=== PATIENT | male | born 1945 | race Caucasian/White ===

== ENCOUNTER 2019-02-26 11:48 | Observation (INO) | payer MEDICARE, OTHER ==
[2019-02-26 12:07] LABS: ABSOLUTE EOSINOPHILS # (AUTO) 0.1 10^3/uL (0.0-0.6); ABSOLUTE LYMPHOCYTES (AUTO) 1.1 10^3/uL (0.5-4.7); ABSOLUTE MONOCYTES (AUTO) 0.5 10^3/uL (0.1-1.4); ABSOLUTE NEUT (AUTO) 4.8 10^3/uL (1.7-8.2); BASOPHILS % (AUTO) 0.4 % (0-2); HEMATOCRIT 43.9 % (37.9-51.0); HEMOGLOBIN 15.1 g/dL (13.5-17.0); LYMPHOCYTES % (AUTO) 17.1 % (13-45); MEAN CORPUSCULAR HEMOGLOBIN 29.4 pg (27.0-33.4); MEAN CORPUSCULAR HGB CONC 34.4 g/dL (32.0-36.0); MEAN CORPUSCULAR VOLUME 85 fl (80-97); PLATELET COUNT 203 10^3/uL (150-450); RED BLOOD COUNT 5.14 10^6/uL (4.35-5.55); RED CELL DISTRIBUTION WIDTH 14.5 % (11.5-14.0); SEGMENTED NEUTROPHILS % (AUTO) 72.5 % (42-78); TOTAL CELLS COUNTED % (AUTO) 100 %; WHITE BLOOD COUNT 6.6 10^3/uL (4.0-10.5)
--- NOTE | 2019-02-26 12:07 | RADIOLOGY REPORT (SQ) ---
EXAM DESCRIPTION: CT HEAD WITHOUT COMPLETED DATE/TIME: 02/26/2019 11:55 am REASON FOR STUDY: bed 15 stroke alert COMPARISON: None. TECHNIQUE: Axial images acquired through the brain without intravenous contrast. Images reviewed wi th bone, brain and subdural windows. Additional sagittal and coronal reconstructions were generated. Images stored on PACS. All CT scanners at this facility use dose modulation, iterative reconstruction, and/or weight based d osing when appropriate to reduce radiation dose to as low as reasonably achievable (ALARA). [facility]: Dose Right [facility]: CareDose [facility]: Dose Right [facility]: Teradose 4D [facility]: [place] RADIATION DOSE: mGy. LIMITATIONS: None. FINDINGS: VENTRICLES: Normal size and contour. CEREBRUM: No masses. No hemorrhage. No midline shift. No evidence for acute infarction. Normal gra y/white matter differentiation. No areas of low density in the white matter. CEREBELLUM: No masses. No hemorrhage. No alteration of density. No evidence for acute infarction. EXTRAAXIAL SPACES: No fluid collections. No masses. ORBITS AND GLOBE: No intra- or extraconal masses. Normal contour of globe without masses. CALVARIUM: No fracture. PARANASAL SINUSES: No fluid or mucosal thickening. SOFT TISSUES: No mass or hematoma. OTHER: No other significant finding. IMPRESSION: NORMAL BRAIN CT WITHOUT CONTRAST. EVIDENCE OF ACUTE STROKE: NO. COMMENT: Pertinent positive or negative findings of the imaging study reported as a CRITICAL EXAM t o ER PROVIDER at11:59 on 02/26/2019. Category of Critical Exam: Stroke alert Quality ID # [id number]: Final reports with documentation of one or more dose reduction techniques (e.g., Au tomated exposure control, adjustment of the mA and/or kV according to patient size, use of iterative reconstruction technique) TECHNICAL DOCUMENTATION: JOB ID: [id number] [employer]- All Rights Reserved Reading location - IP/workstation name: [email or web address]
[2019-02-26 12:10] LABS: INTERNATIONAL RATION (INR) 1.02; PROTHROMBIN TIME 13.9 SEC (11.4-15.4)
[2019-02-26 12:11] LABS: PARTIAL THROMBOPLASTIN TIME 31.4 SEC (23.5-35.8)
[2019-02-26 12:24] LABS: ALANINE AMINOTRANSFERASE 36 U/L (21-72); ALBUMIN 4.2 g/dL (3.5-5.0); ALKALINE PHOSPHATASE 92 U/L (38-126); ANION GAP 8 (5-19); ASPARTATE AMINO TRANSFERASE 30 U/L (17-59); BILIRUBIN,DIRECT 0.2 mg/dL (0.0-0.4); BILIRUBIN,TOTAL 0.5 mg/dL (0.2-1.3); BLOOD UREA NITROGEN 18 mg/dL (7-20); CALCIUM 9.9 mg/dL (8.4-10.2); CARBON DIOXIDE 26 mmol/L (22-30); CHLORIDE 105 mmol/L (98-107); CREATINE KINASE 110 U/L (55-170); GLUCOSE 100 mg/dL (75-110); POTASSIUM 4.1 mmol/L (3.6-5.0); SODIUM 139.3 mmol/L (137-145)
[2019-02-26] MEDS ORDERED: NORMAL SALINE 1000 ML 1,000 ML IV ONE (12:24)
[2019-02-26 12:35] LABS: CREATINE KINASE MB 1.49 ng/mL (<4.55)
--- NOTE | 2019-02-26 12:35 | RADIOLOGY REPORT (SQ) ---
EXAM DESCRIPTION: CHEST SINGLE VIEW COMPLETED DATE/TIME: 02/26/2019 12:23 pm REASON FOR STUDY: bed 15 stroke alert COMPARISON: None. EXAM PARAMETERS: NUMBER OF VIEWS: One view. TECHNIQUE: Single frontal radiographic view of the chest acquired. RADIATION DOSE: NA LIMITATIONS: None. FINDINGS: LUNGS AND PLEURA: Basilar atelectasis. No pneumothorax. No effusions. MEDIASTINUM AND HILAR STRUCTURES: No masses. Contour normal. HEART AND VASCULAR STRUCTURES: Heart enlarged. BONES: No acute findings. HARDWARE: None in the chest. OTHER: No other significant finding. IMPRESSION: Cardiac enlargement. Basilar atelectasis. TECHNICAL DOCUMENTATION: JOB ID: [id number] [employer]- All Rights Reserved Reading location - IP/workstation name: [email or web address]
[2019-02-26 12:36] LABS: TROPONIN I < 0.012 ng/mL
--- NOTE | 2019-02-26 13:06 | ER Document Report ---
ED Neuro Symptoms/Deficit - General Chief Complaint: Facial Droop Stated Complaint: POSSIBLE STROKE Time Seen by Provider: 02/26/19 11:57 Notes: Patient was driving his car today, about 1/2-hour ago, when he suddenly could not speak properly. He and his were together in the car and had been traveling since early this morning from near [place], headed to [place], [place]. They did eat breakfast sandwiches and coffee this morning. According to the , patient's speech became garbled and slurred and like "gibberish".. He seemed to be confused and unable to answer questions.. He was able to bring the car to a stop and EMS was called for the patient. They describe him having coordination problems, not able to touch his index finger to his nose and to the examiner's finger. EMS says that he overshot his nose and touch the back of his head. He seemed very forgetful, he was able to provide his name but did not know where he is. He could not squeeze the EMS examiner hands when requested. Denies having any headache. No loss of consciousness. Was able to stand for EMS. Has not been sick recently. Never had a stroke. No history of any heart disease. History of hypertension, sleep apnea, and restless leg syndrome. Patient has hearing aids but he does not wear them very often and is not wearing them currently although he seems to be able to hear what we are saying to him. TRAVEL OUTSIDE OF THE [place] IN LAST 30 DAYS: No - Related Data Allergies/Adverse Reactions: No Known Allergies Allergy (Unverified 02/26/19 12:48) Past Medical History - Social History Smoking Status: Former Smoker - Many years ago Frequency of alcohol use: Occasional Drug Abuse: None Family History: Reviewed & Not Pertinent Patient has suicidal ideation: No Patient has homicidal ideation: No - Past Medical History Cardiac Medical History: Reports: Hx Hypertension Pulmonary Medical History: Reports: Hx COPD, Hx Sleep Apnea - On CPAP Musculoskeletal Medical History: Reports Hx Restless Leg Syndrome Past Surgical History: Reports: Hx Orthopedic Surgery - bilat hip replacement, Other - Prostate surgery Review of Systems - Review of Systems Notes: REVIEW OF SYSTEMS: CONSTITUTIONAL : Denies fever. EENT: Patient is hard of hearing and wears hearing aids sometimes, but not regularly. Otherwise denies eye, ear, nose or mouth or throat pain or other symptoms. CARDIOVASCULAR: Denies chest pain. RESPIRATORY: Denies cough, chest congestion, or shortness of breath. GASTROINTESTINAL: Denies abdominal pain or nausea, vomiting, or diarrhea. GENITOURINARY: Denies difficulty or painful urinating, urinary frequency, blood in urine. MUSCULOSKELETAL: Denies back or neck pain. Denies joint pain or swelling. SKIN: Denies rash or skin lesions. NEUROLOGICAL: See HPI. Denies LOC or altered mental status. Denies headache. Denies sensory loss or motor deficits. ALL OTHER SYSTEMS REVIEWED AND NEGATIVE. Physical Exam - Vital signs Vitals: Resp 13 02/26/19 11:56 Interpretation: Normal Notes: PHYSICAL EXAMINATION: GENERAL: Well-appearing, in no acute distress. Patient has difficulty answering any questions. Seems to have to think about every answer and then has difficulty speaking the words. Seems as if he cannot find the proper words to use. He does know his name, but not his location. He knows the month is February and that he is 73, although it takes him some significant length of time to provide answers. Speech is garbled. HEAD: Atraumatic, normocephalic. EYES: Pupils equal round and reactive to light, extraocular movements intact. ENT: oropharynx clear without exudates. Moist mucous membranes. NECK: Normal range of motion, supple. No carotid bruits heard. LUNGS: Breath sounds clear and equal bilaterally. HEART: Regular rate and rhythm without murmurs. ABDOMEN: Soft, nontender. No guarding or rebound. No masses. BACK: No tenderness throughout entire back. EXTREMITIES: Normal range of motion without pain. NEUROLOGICAL: Gait not tested. EMS reports patient was able to stand and walk. Speech initially garbled and very slow and deliberate and almost seemingly confused. Delays rather lengthy period of time. EMS reports the patient had a left facial droop after they picked him up and started here while in the vehicle. However, they do not see it at this time nor do we see any facial asymmetry. PSYCH: Normal mood, normal affect. SKIN: Warm, dry, no rashes. Course - Re-evaluation Re-evalutation: 02/26/19 13:12 As I was doing my second evaluation of the patient after he had been to CT scan, patient's speech began to improve. Gradually recovered normal speech and his thought processes seem to clear completely and the family agrees that he is much better now than he was initially. Because of the patient's recovery of almost all apparently normal neurologic function and speech and language, and with a normal CT scan, I do not think the patient is a candidate for thrombolytic therapy. His symptoms are more consistent with a TIA. Have discussed this with the family and told him that I think the risk of giving thrombolytics in this situation are worse than the potential limited gain, since the patient is clearly almost back to normal. 02/26/19 15:45 Patient's MRI of the brain does not show any evidence of stroke. Basically normal study. Aspirin will be initiated. - Vital Signs Vital signs: Temp Pulse Resp BP Pulse Ox 98.0 F 66 20 134/76 H 94 02/26/19 15:30 02/26/19 14:30 02/26/19 16:02 02/26/19 16:02 02/26/19 16:02 - Laboratory Result Diagrams: 02/26/19 11:50 02/26/19 11:50 Laboratory results interpreted by me: 02/26/19 11:50 RDW 14.5 H - Diagnostic Test Radiology reviewed: Image reviewed, Reports reviewed - CT scan of the brain is normal. MRI of the brain is also normal. No evidence of stroke. Radiology results interpreted by me: 02/26/19 13:16 Chest x-ray shows cardiomegaly but otherwise normal. - EKG Interpretation by Sc EKG shows normal: Sinus rhythm Rate: Normal Rhythm: NSR - At 66/min Critical Care Note - Critical Care Note Total time excluding time spent on procedures (mins): 30 Discharge - Discharge Clinical Impression: TIA (transient ischemic attack) Disposition: ADMITTED OBSERVATION Admitting Provider: Onime (Hospitalist) Unit Admitted: Telemetry
--- NOTE | 2019-02-26 15:36 | RADIOLOGY REPORT (SQ) ---
EXAM DESCRIPTION: MRI HEAD WITHOUT COMPLETED DATE/TIME: 02/26/2019 3:23 pm REASON FOR STUDY: TIA, garbled speech, confusion, no peripheral neur COMPARISON: CT same day TECHNIQUE: Multiplanar imaging includes non-contrasted T1, T2, FLAIR, and Diffusion with ADC map seq uences. Images stored on PACS. LIMITATIONS: None. FINDINGS: ANATOMY: No anomalies. Normal vascular flow voids. Pituitary fossa normal. CSF SPACES: Normal in size and contour. No hemorrhage. CEREBRUM: A few high-signal intensity lesions scattered throughout the white matter on FLAIR imaging with distribution suggesting chronic micro-vascular ischemic change. Sulci and gyri normal in size a nd contour. No evidence of hemorrhage, mass or extraaxial fluid collection. POSTERIOR FOSSA: No signal alteration. No hemorrhage. No edema, masses or mass effect. Internal ross tory canals, cerebello-pontine angles, mastoids normal. DIFFUSION: Negative for acute or sub-acute infarction. ORBITS: No masses. Globes normal. PARANASAL SINUSES: No fluid levels. Mucosa normal. OTHER: No other significant finding. IMPRESSION: MINIMAL MICROVASCULAR ISCHEMIC CHANGE. OTHERWISE NORMAL STUDY. EVIDENCE OF ACUTE STROKE: NO. TECHNICAL DOCUMENTATION: JOB ID: [id number] [employer]- All Rights Reserved Reading location - IP/workstation name: [email or web address]
[2019-02-26] MEDS ORDERED: ASPIRIN 325 MG TABLET PO ONE (15:55)
--- NOTE | 2019-02-26 17:15 | RADIOLOGY REPORT (SQ) ---
EXAM DESCRIPTION: CAROTID DOPPLER COMPLETED DATE/TIME: 02/26/2019 4:49 pm REASON FOR STUDY: TIA COMPARISON: MRI brain 02/26/2019. CT brain 02/26/2019. TECHNIQUE: Grayscale ultrasound, Doppler velocity and spectra, and color Doppler images acquired of the extra-cranial carotid and vertebral arteries. Images stored on PACS. LIMITATIONS: None. FINDINGS: RIGHT CAROTID CCA Velocities: Within normal limits, peak systolic velocity 0.86 m/sec. ICA Velocities Peak systolic 0.56 m/s. End diastolic 0.20 m/s. Proximal ICA/CCA peak systolic ratio normal. Spectra normal. No significant plaque. LEFT CAROTID CCA Velocities: Within normal limits, peak systolic velocity 1 m/sec. ICA Velocities Peak systolic 0.58 m/s. End diastolic 0.23 m/s. Proximal ICA/CCA peak systolic ratio normal. Spectra normal. No significant plaque. VERTEBRAL ARTERIES: Antegrade flow. Normal waveforms. SUBCLAVIAN ARTERIES: Not evaluated OTHER: No other significant finding. IMPRESSION: NO HEMODYNAMICALLY SIGNIFICANT STENOSIS. COMMENT: Quality ID #[id number]: Velocity criteria are extrapolated from the diameter data as defined by t he Society of Radiologists in Ultrasound Consensus Conference. Radiology 2003: 229; 340-346. TECHNICAL DOCUMENTATION: JOB ID: [id number] [employer]- All Rights Reserved Reading location - IP/workstation name: [email or web address]
--- NOTE | 2019-02-26 18:55 | PDOC H&P ---
History of Present Illness Patient complains of: Expressive aphasia History of Present Illness: MIGUEL ÁNGEL CH I is a 73 year old male history of hypertension, hyperlipidemia, prostate cancer, who presented to the ED with complaint of confusion while he was riding in the car to visit family for [place]. Stated he became disoriented briefly. Also he could not get his words out. No loss of consciousness. No chest pain no shortness of breath or palpitations. Denies history of similar episode in the past or history of CVA. However, reports brother with a history of CVA. By the time he arrived in the ED, symptoms had improved. Initial head CT was negative for acute process. Patient was treated with aspirin and referred for admission. Past Medical History Cardiac Medical History: Reports: Hypertension Pulmonary Medical History: Reports: Chronic Obstructive Pulmonary Disease (COPD), Sleep Apnea - On CPAP Past Surgical History Past Surgical History: Reports: Orthopedic Surgery - bilat replacement Social History Smoking Status: Former Smoker - Many years ago - Advance Directive Resuscitation Status: Full Code Family History Family History: CVA Parental Family History Reviewed: Yes Children Family History Reviewed: Yes Sibling(s) Family History Reviewed.: Yes Medication/Allergy Home Medications: Lisinopril [Prinivil 10 mg Tablet] 10 mg PO DAILY 02/26/19 Pramipexole Di-HCl [Mirapex] 1 mg PO BID 02/26/19 Pravastatin Sodium [Pravachol] 40 mg PO DAILY 02/26/19 Allergies/Adverse Reactions: No Known Allergies Allergy (Unverified 02/26/19 12:48) Review of Systems Review of Systems: CONSTITUTIONAL : Fever, chills -- No; unexpalined fatigue -- No EENT: Denies eye, ear, throat, or mouth pain or symptoms. Denies nasal or sinus congestion or discharge. Denies throat, tongue, or mouth swelling or difficulty swallowing. CARDIOVASCULAR: Denies chest pain. No racing heart RESPIRATORY: Denies cough, no shortness of breath, difficulty breathing. GASTROINTESTINAL: Denies abdominal pain or distention. Denies nausea, vomiting, or diarrhea. No rectal bleeding. GENITOURINARY: Urinary symptoms -- no. MUSCULOSKELETAL: No acute weakness SKIN: Denies rash, lesions or sores. HEMATOLOGIC : Denies easy bruising or bleeding. LYMPHATIC: Denies swollen, enlarged glands. NEUROLOGICAL: New weakness, headaches, slured speach - No PSYCHIATRIC: Changes anxiety or stress, depression, suicidal ideation, or homicidal ideation -- No ALL OTHER SYSTEMS REVIEWED AND NEGATIVE. Physical Exam Vital Signs: Temp Pulse Resp BP Pulse Ox 97.9 F 66 20 153/88 H 93 02/26/19 12:32 02/26/19 12:01 02/26/19 12:32 02/26/19 12:32 02/26/19 12:32 Intake & Output 02/25/19 02/26/19 02/27/19 06:59 06:59 06:59 Intake Total 1000 Balance 1000 Weight 95.6 kg GENERAL: Well-developed, well-nourished male, in no acute distress HEENT: Normocephalic/atraumatic, oral mucosa clear NECK supple, no JVD, no carotid bruit CARDIOVASCULAR: RRR, normal S1-S2, no appreciable murmur LUNGS: CTA bilaterally ABDOMEN: Soft, NT, NL bowel sounds EXTREMITIES: No edema, clubbing, cyanosis NEUROLOGICAL: Alert, oriented x 3, CN II through XII grossly intact, motor/strength 5/5 throughout, reflexes 2+ symmetrical Results Laboratory Results: 02/26/19 11:50 02/26/19 11:50 02/26/19 02/26/19 11:50 11:50 WBC 6.6 RBC 5.14 Hgb 15.1 Hct 43.9 MCV 85 MCH 29.4 MCHC 34.4 RDW 14.5 H Plt Count 203 Seg Neutrophils % 72.5 Lymphocytes % 17.1 Monocytes % 8.0 Eosinophils % 2.0 Basophils % 0.4 Absolute Neutrophils 4.8 Absolute Lymphocytes 1.1 Absolute Monocytes 0.5 Absolute Eosinophils 0.1 Absolute Basophils 0.0 Sodium 139.3 Potassium 4.1 Chloride 105 Carbon Dioxide 26 Anion Gap 8 BUN 18 Creatinine 0.76 Est GFR ( Amer) > 60 Est GFR (Non-Af Amer) > 60 Glucose 100 Calcium 9.9 Total Bilirubin 0.5 AST 30 ALT 36 Alkaline Phosphatase 92 Total Protein 7.0 Albumin 4.2 02/26/19 02/26/19 11:50 11:50 Creatine Kinase 110 CK-MB (CK-2) 1.49 Troponin I < 0.012 Impressions: Chest X-Ray 02/26/19 11:49 IMPRESSION: Cardiac enlargement. Basilar atelectasis. Head CT 02/26/19 11:49 IMPRESSION: NORMAL BRAIN CT WITHOUT CONTRAST. EVIDENCE OF ACUTE STROKE: NO. Assessment and Plan - Diagnosis (1) TIA (transient ischemic attack) Is this a current diagnosis for this admission?: Yes (2) Hypertension Is this a current diagnosis for this admission?: Yes (3) Hyperlipidemia Is this a current diagnosis for this admission?: Yes (4) History of prostate cancer Is this a current diagnosis for this admission?: Yes (5) Restless leg syndrome Is this a current diagnosis for this admission?: Yes - Plan Summary Plan Summary: Suspect patient has TIA. Will admit to telemetry 24 hrs observation. Will obtain MRI of the head to r/o CVA. Will check echocardiogram and carotid Dopplers to complete workup. Encouraging is that his symptoms have largely resolved. We will treat with aspirin. Continue patient's chronic outpatient medications otherwise. He is on pravastatin 40 mg daily. Will change to high-dose statin with atorvastatin 40 mg daily.
[2019-02-26] MEDS ORDERED: PRAMIPEXOLE DI-HCL 0.5 MG TABLET PO ONE (19:30)
--- NOTE | 2019-02-26 20:54 | EKG REPORT ---
SEVERITY:- ABNORMAL ECG - SINUS RHYTHM PROBABLE INFERIOR INFARCT, AGE INDETERMINATE : Confirmed by: Josephine Slade MD 26-Feb-2019 20:53:45
[2019-02-26] MEDS ORDERED: PRAMIPEXOLE DI-HCL 0.5 MG TABLET ONE (20:55)
[2019-02-26] MEDS ORDERED: ATORVASTATIN CALCIUM 40 MG TABLET PO SCH (22:00)
[2019-02-27] MEDS ORDERED: PRAMIPEXOLE DI-HCL 0.5 MG TABLET PO SCH (10:00)
[2019-02-27] MEDS ORDERED: LISINOPRIL 10 MG TABLET PO SCH (10:00)
[2019-02-27] MEDS ORDERED: ENOXAPARIN SODIUM INJ 40 MG/0.4 ML DISP.SYRIN SUBCUT SCH (10:00)
--- NOTE | 2019-02-27 14:28 | XCELERA REPORT ---
[address] [address] Transthoracic Echocardiogram Report Name: MIGUEL ÁNGEL CH I Age: 73 yrs Gender: Male : 1945 Patient Status: Inpatient Patient Location: [place] [address]^A Study Date: 02/26/2019 04:08 PM Height: 70 in Weight: 210 lb BSA: 2.1 m2 Procedure: A two-dimensional transthoracic echocardiogram with color flow and Doppler was performed. Study Quality: Poor. Images were not obtained from all of the standard acoustic windows due to the limited scope of the study. Poor endocardial defnition and porr doppler.Not a good study to assess for TIA.Recommend MARLENA. Reason For Study: TIA History: TIA. Ordering Physician: AMY JEFFERS Performed By: Elmer Ley Interpretation Summary Poor endocardial defnition and porr doppler.Not a good study to assess for TIA.Recommend MARLENA. Probably normal LV size and probably no LVH.No 'True 2 chamber apical views obtatined.Hence cannot comment on the basal anterior,,apical anterior , the apical inferior and basal inferior webb,The mid anterior , mid inferior and the rest LV webb probably contract normally.In the limited views LVEF is greater than 60%. Probably mild LA enlargement. There is no mitral valve stenosis. Probably trace MR. There is no aortic valve stenosis No aortic regurgitation is present. TV not well visualised.Probably trace TR .Unable to calculate RVSP due to lack of TR jet. There is no pericardial effusion. MMode/2D Measurements & Calculations RVDd: 3.0 cm LVIDd: 5.1 cm FS: 46.0 % Ao root diam: 2.9 cm IVSd: 1.1 cm LVIDs: 2.8 cm EDV(Teich): 123.9 ml Ao root area: 6.5 cm2 LVPWd: 1.1 cm ESV(Teich): 28.4 ml LA dimension: 4.3 cm EF(Teich): 77.1 % Doppler Measurements & Calculations MV E max ramirez: MV P1/2t max ramirez: Ao V2 max: LV V1 max P.9 cm/sec 97.0 cm/sec 131.9 cm/sec 2.4 mmHg MV A max ramirez: MV P1/2t: 53.1 msec Ao max PG: LV V1 max: 83.9 cm/sec MVA(P1/2t): 4.1 cm2 7.0 mmHg 78.0 cm/sec MV E/A: 1.0 MV dec slope: 534.5 cm/sec2 MV dec time: 0.24 sec PA V2 max: MV P1/2t-pr_phl: 97.9 cm/sec 53.1 msec PA max P.8 mmHg Left Ventricle Probably normal LV size and probably no LVH.No 'True 2 chamber apical views obtatined.Hence cannot comment on the basal anterior,,apical anterior , the apical inferior and basal inferior webb,The mid anterior , mid inferior and the rest LV webb probably contract normally.In the limited views LVEF is greater than 60%. Doppler measurements suggest normal left ventricular diastolic function. Right Ventricle The right ventricle is not well visualized secondary to technical limitations. Atria Right atrium not well visualized secondary to technical limitations. Probably mild LA enlargement. Mitral Valve There is no evidence of mitral valve prolapse. There is no mitral valve stenosis. Probably trace MR. Aortic Valve There is no aortic valve stenosis. No aortic regurgitation is present. Tricuspid Valve TV not well visualised.Probably trace TR .Unable to calculate RVSP due to lack of TR jet. Pulmonic Valve The pulmonic valve is not well visualized. Great Vessels The aortic root is not well visualized. Effusions There is no pericardial effusion. : AMY JEFFERS > Josephine Slade
[2019-02-27 15:19] VITALS: BP 131/74
== END 2019-02-27 15:55 | disposition home or self-care (01) ==
LOC: ER 11:48 → EH 16:27 → 3W 19:53
PROVIDERS: ADMIT Internal Medicine; ATTEND Internal Medicine
DX: G45.9 Transient cerebral ischemic attack, unspecified (principal); I10 Essential (primary) hypertension; E78.5 Hyperlipidemia, unspecified; G25.81 Restless legs syndrome; G47.30 Sleep apnea, unspecified; Z85.46 Personal history of malignant neoplasm of prostate; Z79.899 Other long term (current) drug therapy; Z87.891 Personal history of nicotine dependence; Z98.890 Other specified postprocedural states; Z96.643 Presence of artificial hip joint, bilateral
CPT/HCPCS: 93005; 99291; 36415; 82553; 82550; 85025; 85610; 85730; 80053; 84484; 93306; 93880; 70551; 71045; 70450; 93010; 94660 ×2; G0378 ×3; A9270 ×3; J3490 ×2; J7030